=== PATIENT | female | born 2000 | race Caucasian/White ===

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

== ENCOUNTER → 2025-07-14 | Outpatient (CLI) | payer OTHER ==
[2025-07-19 08:23] LABS: C. TRACHOMATIS BY TMA,THINPREP Negative; N. GONORRHOEAE BY TMA,THINPREP Negative
== END ==
LOC: LAB 13:32 → LAB SHORT 13:32
PROVIDERS: Family Medicine
DX: Z01.419 Encounter for gynecological examination (general) (routine) without abnormal findings (principal); Z11.3 Encounter for screening for infections with a predominantly sexual mode of transmission
CPT/HCPCS: 87491; 87591